=== PATIENT | female | born 1960 | race Caucasian/White ===

== ENCOUNTER 2021-01-03 11:57 | Emergency (ER) | payer OTHER ==
[~2021-01-03 11:57] MED LIST: AMITIZA8 MCG PO; ASPIRIN CHEWABL81 MG PO; CARDIZEM CD240 MG PO; CLARITIN10 MG PO; FLEXERIL10 MG PO; HCTZ12.5 MG PO; IBUPROFEN800 MG PO; OS-CAL500 MG PO; PRAVACHOL20 MG PO; VIT D; ZANTAC150 MG PO
[2021-01-03 14:01] LABS: BASOPHIL 0.9 % (0-2); EOSINOPHIL 1.8 % (0-5); HCT 40.4 % (37.0-47.0); HGB 13.6 g/dl (12.5-16.0); LYMPHOCYTE 30.3 % (15-48); MCH 30.1 pg (25.0-31.0); MCHC 33.7 g/dL (32.0-36.0); MCV 89.4 fL (78.0-100.0); MONOCYTE 7.7 % (0-12); MPV 9.7 fL (6.0-9.5); NEUTROPHIL 59.2 % (41-80); NRBC 0; PLT 308 K/uL (150-400); RBC 4.52 M/uL (4.20-5.40); WBC 7.6 K/uL (4.0-10.5)
[2021-01-03 14:35] LABS: BUN/CREAT RATIO (CALC) 21.3 RATIO; CREATININE 0.75 mg/dL (0.51-0.95)
[2021-01-03] MEDS ORDERED: K-DUR20 MEQ PO (14:53)
[2021-01-03] MEDS ORDERED: NAPROXEN500 MG PO (14:53)
== END 2021-01-03 15:10 | disposition home or self-care (01) ==
LOC: FER 11:57
PROVIDERS: Nurse Practitioner Family
DX: M79.661 Pain in right lower leg (principal); E87.6 Hypokalemia; R60.0 Localized edema; I10 Essential (primary) hypertension; Z87.19 Personal history of other diseases of the digestive system; Z88.0 Allergy status to penicillin
CPT/HCPCS: 36415; 80048; 85025; 93971

== ENCOUNTER 2022-05-27 20:06 | Emergency (ER) | payer OTHER ==
[~2022-05-27 20:06] MED LIST changes: +K-DUR20 MEQ PO; +NAPROXEN500 MG PO
[2022-05-27] MEDS ORDERED: NORCO 5-325 TA1 EACH PO (22:41)
== END 2022-05-27 22:58 | disposition home or self-care (01) ==
LOC: FER 20:06
DX: M17.11 Unilateral primary osteoarthritis, right knee (principal); Z88.0 Allergy status to penicillin; Z88.5 Allergy status to narcotic agent
CPT/HCPCS: 73560